=== PATIENT | female | born 1955 | race Two or more races ===

== ENCOUNTER 2022-03-21 09:44 | Inpatient (IN) | payer MEDICARE, MEDICAID ==
[~2022-03-21] VITALS: Ht 167.6 cm; Wt 70.5 kg
[2022-03-21 10:58] LABS: Basophils # (auto) 0.1 10 ^3/uL (0-0.2); Eosinophils # (auto) 0.1 10 ^3/uL (0-0.8); Eosinophils % (auto) 1.6 % (0.0-7.0); Hematocrit 45.4 % (36.0-46.0); Lymphocytes # (auto) 1.6 10 ^3/uL (0.4-5.4); Mean Corpuscular Hgb Conc. 33.1 g/dL (32.0-36.0); Mean Corpuscular Volume 87.7 fL (80.0-100.0); Monocytes # (auto) 0.4 10 ^3/uL (0-1.3); Neutrophils # (auto) 4.2 10 ^3/uL (1.6-8.6); Neutrophils % (auto) 65.4 % (37.0-80.0); Nucleated Red Blood Cells % 0.1 %; Red Blood Cells 5.18 10^6/uL (4.0-5.20); Red Cell Distribution Width 13.5 % (11.8-14.3); White Blood Cell 6.3 10^3/uL (4.4-10.8)
[2022-03-21 11:15] LABS: Albumin 3.5 g/dL (3.4-5.0); Anion Gap 8 (5-15); Blood Urea Nitrogen 24 mg/dL (7-18); Calcium 9.4 mg/dL (8.5-10.1); Carbon Dioxide 25 mmol/L (21-32); Chloride 107 mmol/L (98-107); Glucose 113 mg/dL (74-106); Potassium 3.9 mmol/L (3.5-5.1); Sodium 140 mmol/L (136-145)
[2022-03-21 11:20] LABS: Alanine Aminotransferase 21 U/L (13-56); Alkaline Phosphatase 103 U/L (45-117); Aspartate Aminotransferase 19 U/L (15-37); BUN/Creatinine Ratio 31.2; Bilirubin, Total 0.8 mg/dL (0.2-1.0); Blood Alcohol < 3.0 mg/dL (0-5); GFR African American 96 mL/min; GFR Non-African American 80 mL/min; Total Protein 7.9 g/dL (6.4-8.2)
[2022-03-21 11:21] LABS: Salicylate < 1.7 mg/dL (2.8-20.0)
[2022-03-21 11:22] LABS: Acetaminophen < 2.0 ug/mL (10-30)
[2022-03-21 11:27] LABS: Alcohol, Urine < 3.0 mg/dL (0-10); Amphetamine Screen, Urine NEGATIVE (NEGATIVE); Barbiturate Scree,Urine NEGATIVE (NEGATIVE); Benzodiazephine Screen, Urine NEGATIVE (NEGATIVE); Cannabinoid Screen, Urine NEGATIVE (NEGATIVE); Cocaine Screen, Urine NEGATIVE (NEGATIVE); Opiate Scree,Urine NEGATIVE (NEGATIVE); Phencyclidine Screen, Urine NEGATIVE (NEGATIVE)
[2022-03-21] MEDS ORDERED: DIVA250T4 PO (17:58)
[2022-03-21] MEDS ORDERED: HYDR50TA69 PO (17:58)
[2022-03-22] MEDS: hydrOXYzine 25 MG TAB or CAP PO PRN ×2 (00:28→10:55)
[2022-03-22 22:56] VITALS: BP 101/68
[2022-03-23] MEDS: hydrOXYzine 25 MG TAB or CAP PO PRN (20:53)
[2022-03-23 22:00] VITALS: BP 82/45
[2022-03-23 22:05] VITALS: BP 89/64
[2022-03-24 05:00] VITALS: BP 99/68
[2022-03-24 09:00] VITALS: BP 99/65
[2022-03-24] MEDS ORDERED: SERTRALINE HCL 50 MG TAB PO ONE (11:00)
[2022-03-24] MEDS: ENOXAPARIN SOD 40 MG/0.4 ML SYRINGE SC SCH (12:17)
[2022-03-24 13:00] VITALS: BP 107/61
[2022-03-24 13:06] LABS: Basophils # (auto) 0 10 ^3/uL (0-0.2); Basophils % (auto) 0.9 % (0.0-2.0); Eosinophils # (auto) 0.2 10 ^3/uL (0-0.8); Eosinophils % (auto) 4.2 % (0.0-7.0); Hematocrit 42.5 % (36.0-46.0); Hemoglobin 13.9 g/dL (12.2-16.2); Lymphocytes # (auto) 1.4 10 ^3/uL (0.4-5.4); Lymphocytes % (auto) 30.6 % (10.0-50.0); Mean Corpuscular Hemoglobin 28.8 pg (28.0-32.0); Mean Corpuscular Hgb Conc. 32.7 g/dL (32.0-36.0); Monocytes # (auto) 0.3 10 ^3/uL (0-1.3); Monocytes % (auto) 6.7 % (0.0-12.0); Neutrophils # (auto) 2.6 10 ^3/uL (1.6-8.6); Neutrophils % (auto) 57.6 % (37.0-80.0); Nucleated Red Blood Cells % 0.2 %; Red Blood Cells 4.83 10^6/uL (4.0-5.20); Red Cell Distribution Width 13.6 % (11.8-14.3); White Blood Cell 4.5 10^3/uL (4.4-10.8)
[2022-03-24 13:21] LABS: Potassium 3.9 mmol/L (3.5-5.1)
[2022-03-24 13:32] LABS: Albumin 3.1 g/dL (3.4-5.0); Bilirubin, Total 0.7 mg/dL (0.2-1.0); Magnesium 1.9 mg/dL (1.6-2.6); Total Protein 6.6 g/dL (6.4-8.2)
[2022-03-24] MEDS: hydrOXYzine 25 MG TAB or CAP PO PRN (20:52)
[2022-03-24 21:51] VITALS: BP 102/65
[2022-03-25 04:51] VITALS: BP 95/60
[2022-03-25 08:59] LABS: Hepatitis B Surface Antibody Positive (Negative)
[2022-03-25 09:35] LABS: Hepatitis A Total Antibody Positive (Negative)
[2022-03-25] MEDS: ENOXAPARIN SOD 40 MG/0.4 ML SYRINGE SC SCH (10:00)
[2022-03-25] MEDS: SERTRALINE HCL 50 MG TAB PO SCH (10:00)
[2022-03-25 10:41] LABS: Hepatitis C Antibody Positive (Negative)
[2022-03-25 12:19] VITALS: BP 90/55
[2022-03-25 17:00] VITALS: BP 94/65
[2022-03-25] MEDS: hydrOXYzine 25 MG TAB or CAP PO PRN (21:16)
[2022-03-25 22:00] VITALS: BP 105/70
[2022-03-26 04:43] VITALS: BP 92/61
[2022-03-26] MEDS: SERTRALINE HCL 50 MG TAB PO SCH (10:42)
[2022-03-26] MEDS: hydrOXYzine 25 MG TAB or CAP PO PRN ×2 (10:42→21:00)
[2022-03-26] MEDS: ENOXAPARIN SOD 40 MG/0.4 ML SYRINGE SC SCH (10:43)
[2022-03-26 17:00] VITALS: BP 107/61
[2022-03-27 08:00] VITALS: BP 101/56
[2022-03-27 08:51] VITALS: BP 101/56
[2022-03-27] MEDS: ENOXAPARIN SOD 40 MG/0.4 ML SYRINGE SC SCH ×2 (10:00→10:19)
[2022-03-27] MEDS: SERTRALINE HCL 50 MG TAB PO SCH (10:19)
[2022-03-27 13:00] VITALS: BP 89/56
[2022-03-27 16:35] VITALS: BP 119/65
[2022-03-27] MEDS: hydrOXYzine 25 MG TAB or CAP PO PRN (21:07)
[2022-03-27 21:36] VITALS: BP 109/66
[2022-03-28 05:00] VITALS: BP 91/60
[2022-03-28 08:00] VITALS: BP 98/53
[2022-03-28 08:05] VITALS: BP 98/53
[2022-03-28] MEDS: ENOXAPARIN SOD 40 MG/0.4 ML SYRINGE SC SCH (10:00)
[2022-03-28] MEDS: SERTRALINE HCL 50 MG TAB PO SCH (10:21)
[2022-03-28 12:20] VITALS: BP 103/55
[2022-03-28] MEDS: hydrOXYzine 25 MG TAB or CAP PO PRN (13:00)
[2022-03-28 16:00] VITALS: BP 94/60
[2022-03-28 22:23] VITALS: BP 107/61
[2022-03-29] MEDS: hydrOXYzine 25 MG TAB or CAP PO PRN ×2 (00:04→21:34)
[2022-03-29 05:03] VITALS: BP 114/51
[2022-03-29 08:51] VITALS: BP 100/73
[2022-03-29] MEDS: ENOXAPARIN SOD 40 MG/0.4 ML SYRINGE SC SCH (10:00)
[2022-03-29] MEDS: SERTRALINE HCL 50 MG TAB PO SCH (10:19)
[2022-03-29 13:00] VITALS: BP 119/71
[2022-03-29 16:43] VITALS: BP 99/57
[2022-03-29] MEDS: LOPERAMIDE HCL 2 MG CAP/TAB PO PRN (21:40)
[2022-03-29 22:00] VITALS: BP 96/59
[2022-03-30 05:00] VITALS: BP 98/59
[2022-03-30 08:00] VITALS: BP 114/72
[2022-03-30] MEDS: ENOXAPARIN SOD 40 MG/0.4 ML SYRINGE SC SCH (10:00)
[2022-03-30] MEDS: hydrOXYzine 25 MG TAB or CAP PO PRN ×2 (11:14→23:09)
[2022-03-30] MEDS: SERTRALINE HCL 50 MG TAB PO SCH (11:14)
[2022-03-30] MEDS: LOPERAMIDE HCL 2 MG CAP/TAB PO PRN ×2 (11:14→23:42)
[2022-03-30 12:00] VITALS: BP 93/48
[2022-03-30 16:00] VITALS: BP 88/54
[2022-03-30 22:00] VITALS: BP 95/65
[2022-03-31] MEDS: hydrOXYzine 25 MG TAB or CAP PO PRN ×2 (04:19→17:57)
[2022-03-31 05:00] VITALS: BP 106/66
[2022-03-31 09:00] VITALS: BP 107/70
[2022-03-31] MEDS: ENOXAPARIN SOD 40 MG/0.4 ML SYRINGE SC SCH (10:00)
[2022-03-31] MEDS: SERTRALINE HCL 50 MG TAB PO SCH (10:04)
[2022-03-31] MEDS: LOPERAMIDE HCL 2 MG CAP/TAB PO PRN (10:06)
[2022-03-31 13:00] VITALS: BP 95/68
[2022-03-31] MEDS ORDERED: HYDROCORTISONE ACET 25 MG RECTAL SUPP PR ONE (15:45)
[2022-03-31 17:00] VITALS: BP 107/77
[2022-03-31 22:00] VITALS: BP 96/64
[2022-04-01] MEDS: HYDROCORTISONE ACET 25 MG RECTAL SUPP PR SCH ×3 (00:01→21:08)
[2022-04-01] MEDS: hydrOXYzine 25 MG TAB or CAP PO PRN ×2 (04:10→21:08)
[2022-04-01 05:00] VITALS: BP 97/63
[2022-04-01 08:10] VITALS: BP 117/68
[2022-04-01 09:05] VITALS: BP 117/68
[2022-04-01] MEDS: ENOXAPARIN SOD 40 MG/0.4 ML SYRINGE SC SCH (09:46)
[2022-04-01] MEDS: SERTRALINE HCL 50 MG TAB PO SCH ×2 (09:46→12:05)
[2022-04-01 13:04] LABS: Basophils # (auto) 0 10 ^3/uL (0-0.2); Basophils % (auto) 0.5 % (0.0-2.0); Eosinophils # (auto) 0.3 10 ^3/uL (0-0.8); Eosinophils % (auto) 3.3 % (0.0-7.0); Hemoglobin 13.8 g/dL (12.2-16.2); Lymphocytes # (auto) 1.8 10 ^3/uL (0.4-5.4); Lymphocytes % (auto) 23.5 % (10.0-50.0); Mean Corpuscular Hemoglobin 28.9 pg (28.0-32.0); Mean Corpuscular Hgb Conc. 32.9 g/dL (32.0-36.0); Mean Corpuscular Volume 87.8 fL (80.0-100.0); Monocytes # (auto) 0.6 10 ^3/uL (0-1.3); Monocytes % (auto) 8.4 % (0.0-12.0); Neutrophils % (auto) 64.3 % (37.0-80.0); Red Blood Cells 4.78 10^6/uL (4.0-5.20); Red Cell Distribution Width 13.4 % (11.8-14.3); White Blood Cell 7.8 10^3/uL (4.4-10.8)
[2022-04-01 13:11] LABS: Albumin 3.4 g/dL (3.4-5.0); BUN/Creatinine Ratio 33.3; Calcium 8.6 mg/dL (8.5-10.1); Potassium 4.1 mmol/L (3.5-5.1)
[2022-04-01 13:14] LABS: Bilirubin, Total 0.4 mg/dL (0.2-1.0)
[2022-04-01 14:19] VITALS: BP 93/43
[2022-04-01 16:00] LABS: Urine Bacteria NONE SEEN /hpf (None Seen); Urine Blood 2+ /uL (Negative); Urine Specific Gravity 1.012 (1.001-1.035); Urine WBC 1 /hpf (0 - 5)
[2022-04-01] MEDS: HALOPERIDOL LACTATE 5 MG/ML INJ VIAL IM PRN (16:43)
[2022-04-01 17:09] VITALS: BP 138/75
[2022-04-02 08:05] VITALS: BP 98/65
[2022-04-02 09:00] VITALS: BP 98/65
[2022-04-02] MEDS: ENOXAPARIN SOD 40 MG/0.4 ML SYRINGE SC SCH (10:00)
[2022-04-02] MEDS: SERTRALINE HCL 50 MG TAB PO SCH (10:20)
[2022-04-02] MEDS: HYDROCORTISONE ACET 25 MG RECTAL SUPP PR SCH ×2 (10:20→21:31)
[2022-04-02 13:00] VITALS: BP 98/59
[2022-04-02] MEDS: HALOPERIDOL LACTATE 5 MG/ML INJ VIAL IM PRN (14:31)
[2022-04-03] MEDS: HYDROCORTISONE 2.5% TOPICAL CREAM 30GM TUBE PR PRN ×2 (00:27→22:35)
[2022-04-03] MEDS: HALOPERIDOL LACTATE 5 MG/ML INJ VIAL IM PRN (00:52)
[2022-04-03] MEDS: hydrOXYzine 25 MG TAB or CAP PO PRN ×2 (01:11→14:56)
[2022-04-03] MEDS: LOPERAMIDE HCL 2 MG CAP/TAB PO PRN ×2 (01:11→22:34)
[2022-04-03 07:50] VITALS: BP 107/69
[2022-04-03] MEDS: HYDROCORTISONE ACET 25 MG RECTAL SUPP PR SCH ×2 (09:58→22:00)
[2022-04-03] MEDS: ENOXAPARIN SOD 40 MG/0.4 ML SYRINGE SC SCH (09:58)
[2022-04-03] MEDS ORDERED: clonazePAM 0.5 MG TAB PO ONE ×2 (10:00→22:00)
[2022-04-03 13:00] VITALS: BP 94/65
[2022-04-03 21:43] VITALS: BP 94/53
[2022-04-03] MEDS: OLANZapine 5 MG TAB PO SCH (22:34)
[2022-04-04 04:59] VITALS: BP 105/68
[2022-04-04] MEDS: HYDROCORTISONE ACET 25 MG RECTAL SUPP PR SCH ×3 (10:00→22:28)
[2022-04-04] MEDS: ENOXAPARIN SOD 40 MG/0.4 ML SYRINGE SC SCH (10:00)
[2022-04-04] MEDS: HYDROCORTISONE 2.5% TOPICAL CREAM 30GM TUBE PR PRN (14:41)
[2022-04-04 21:22] VITALS: BP 110/70
[2022-04-04] MEDS: OLANZapine 5 MG TAB PO SCH (22:28)
[2022-04-04] MEDS: LOPERAMIDE HCL 2 MG CAP/TAB PO PRN (22:28)
[2022-04-05] MEDS: hydrOXYzine 25 MG TAB or CAP PO PRN ×2 (02:15→22:43)
[2022-04-05 04:49] VITALS: BP 113/76
[2022-04-05 09:00] VITALS: BP 100/57
[2022-04-05 12:58] VITALS: BP 99/66
[2022-04-05] MEDS ORDERED: HYDROcodone-ACET 5/325MG TAB PO PRN (14:15)
[2022-04-05] MEDS: HYDROcodone-ACET 5/325MG TAB PO PRN (15:09)
[2022-04-05 17:00] VITALS: BP 89/56
[2022-04-05] MEDS ORDERED: WITCH HAZEL-GLYCERIN PAD TOP PRN (17:30)
[2022-04-05 22:00] VITALS: BP 104/66
[2022-04-05] MEDS: HYDROCORTISONE ACET 25 MG RECTAL SUPP PR SCH (22:00)
[2022-04-05] MEDS: OLANZapine 5 MG TAB PO SCH (22:11)
[2022-04-06 05:00] VITALS: BP 87/45
[2022-04-06 09:00] VITALS: BP 117/95
[2022-04-06] MEDS: HYDROcodone-ACET 5/325MG TAB PO PRN ×3 (09:39→22:09)
[2022-04-06] MEDS: HYDROCORTISONE ACET 25 MG RECTAL SUPP PR SCH ×2 (10:00→21:12)
[2022-04-06] MEDS: hydrOXYzine 25 MG TAB or CAP PO PRN ×2 (11:02→21:12)
[2022-04-06 13:12] VITALS: BP 92/61
[2022-04-06 16:54] VITALS: BP 99/53
[2022-04-06] MEDS: OLANZapine 5 MG TAB PO SCH (21:12)
[2022-04-07] MEDS: HYDROcodone-ACET 5/325MG TAB PO PRN (04:15)
[2022-04-07] MEDS: HYDROCORTISONE ACET 25 MG RECTAL SUPP PR SCH ×2 (11:13→21:47)
[2022-04-07 13:19] VITALS: BP 104/65
[2022-04-07] MEDS: hydrOXYzine 25 MG TAB or CAP PO PRN ×2 (15:36→21:47)
[2022-04-07 16:54] VITALS: BP 100/65
[2022-04-07] MEDS: Juven Orange Powder PACKET 27.5gm PO SCH (18:29)
[2022-04-07] MEDS: OLANZapine 5 MG TAB PO SCH (21:47)
[2022-04-07 22:00] VITALS: BP 95/68
[2022-04-08] MEDS: HYDROcodone-ACET 5/325MG TAB PO PRN ×2 (02:52→19:27)
[2022-04-08 04:44] VITALS: BP 97/63
[2022-04-08 06:03] LABS: Albumin 2.8 g/dL (3.4-5.0); Calcium 8.5 mg/dL (8.5-10.1); Potassium 3.9 mmol/L (3.5-5.1)
[2022-04-08 06:08] LABS: BUN/Creatinine Ratio 24.2; Bilirubin, Total 0.6 mg/dL (0.2-1.0); Total Protein 6.5 g/dL (6.4-8.2)
[2022-04-08] MEDS: Juven Orange Powder PACKET 27.5gm PO SCH ×2 (08:00→18:01)
[2022-04-08 09:00] VITALS: BP 99/62
[2022-04-08] MEDS: HYDROCORTISONE ACET 25 MG RECTAL SUPP PR SCH ×2 (09:41→21:32)
[2022-04-08] MEDS: LOPERAMIDE HCL 2 MG CAP/TAB PO PRN (09:45)
[2022-04-08] MEDS: ENOXAPARIN SOD 40 MG/0.4 ML SYRINGE SC SCH (09:46)
[2022-04-08 13:00] VITALS: BP 94/62
[2022-04-08 17:00] VITALS: BP 94/55
[2022-04-08 21:02] VITALS: BP 96/69
[2022-04-08] MEDS: hydrOXYzine 25 MG TAB or CAP PO PRN (21:32)
[2022-04-08] MEDS: OLANZapine 5 MG TAB PO SCH (21:32)
[2022-04-09 05:05] VITALS: BP 100/60
[2022-04-09] MEDS: HYDROCORTISONE ACET 25 MG RECTAL SUPP PR SCH ×2 (09:56→21:42)
[2022-04-09] MEDS: ENOXAPARIN SOD 40 MG/0.4 ML SYRINGE SC SCH (09:57)
[2022-04-09] MEDS: Juven Orange Powder PACKET 27.5gm PO SCH ×2 (13:20→18:29)
[2022-04-09] MEDS: HYDROcodone-ACET 5/325MG TAB PO PRN (15:48)
[2022-04-09 17:00] VITALS: BP 79/50
[2022-04-09] MEDS: OLANZapine 5 MG TAB PO SCH (21:42)
[2022-04-09] MEDS: hydrOXYzine 25 MG TAB or CAP PO PRN (21:42)
[2022-04-09 22:55] VITALS: BP 93/57
[2022-04-10 04:51] VITALS: BP 98/62
[2022-04-10] MEDS: HYDROcodone-ACET 5/325MG TAB PO PRN ×2 (06:47→13:39)
[2022-04-10 08:55] VITALS: BP 93/54
[2022-04-10] MEDS: Juven Orange Powder PACKET 27.5gm PO SCH ×2 (10:05→18:54)
[2022-04-10] MEDS: HYDROCORTISONE ACET 25 MG RECTAL SUPP PR SCH ×2 (10:05→21:19)
[2022-04-10] MEDS: ENOXAPARIN SOD 40 MG/0.4 ML SYRINGE SC SCH (10:05)
[2022-04-10 12:23] VITALS: BP 85/51
[2022-04-10 16:53] VITALS: BP 90/53
[2022-04-10] MEDS: OLANZapine 5 MG TAB PO SCH (21:18)
[2022-04-10] MEDS: hydrOXYzine 25 MG TAB or CAP PO PRN (21:20)
[2022-04-10 22:00] VITALS: BP 95/55
[2022-04-11] MEDS: Juven Orange Powder PACKET 27.5gm PO SCH ×2 (08:00→18:06)
[2022-04-11 09:00] VITALS: BP 97/66
[2022-04-11] MEDS: HYDROCORTISONE ACET 25 MG RECTAL SUPP PR SCH ×2 (09:56→21:57)
[2022-04-11] MEDS: ENOXAPARIN SOD 40 MG/0.4 ML SYRINGE SC SCH (09:58)
[2022-04-11] MEDS: HYDROcodone-ACET 5/325MG TAB PO PRN (10:01)
[2022-04-11 12:51] VITALS: BP 89/52
[2022-04-11 15:44] LABS: Basophils # (auto) 0.1 10 ^3/uL (0-0.2); Basophils % (auto) 0.9 % (0.0-2.0); Eosinophils # (auto) 0.2 10 ^3/uL (0-0.8); Eosinophils % (auto) 3.9 % (0.0-7.0); Hematocrit 39.4 % (36.0-46.0); Hemoglobin 12.7 g/dL (12.2-16.2); Lymphocytes # (auto) 1.7 10 ^3/uL (0.4-5.4); Lymphocytes % (auto) 27.4 % (10.0-50.0); Mean Corpuscular Hemoglobin 28.8 pg (28.0-32.0); Mean Corpuscular Hgb Conc. 32.2 g/dL (32.0-36.0); Mean Corpuscular Volume 89.5 fL (80.0-100.0); Monocytes # (auto) 0.4 10 ^3/uL (0-1.3); Monocytes % (auto) 7.1 % (0.0-12.0); Neutrophils # (auto) 3.8 10 ^3/uL (1.6-8.6); Neutrophils % (auto) 60.7 % (37.0-80.0); Nucleated Red Blood Cells % 0.1 %; Red Cell Distribution Width 13.4 % (11.8-14.3); White Blood Cell 6.3 10^3/uL (4.4-10.8)
[2022-04-11 16:41] LABS: BUN/Creatinine Ratio 55.4; Calcium 8.5 mg/dL (8.5-10.1); Potassium 4.1 mmol/L (3.5-5.1)
[2022-04-11 17:00] VITALS: BP 99/65
[2022-04-11] MEDS: hydrOXYzine 25 MG TAB or CAP PO PRN (21:57)
[2022-04-11] MEDS: OLANZapine 5 MG TAB PO SCH (21:58)
[2022-04-11 22:01] VITALS: BP 102/60
[2022-04-12 05:16] VITALS: BP 101/58
[2022-04-12] MEDS: Juven Orange Powder PACKET 27.5gm PO SCH ×2 (08:00→17:36)
[2022-04-12 09:00] VITALS: BP 94/59
[2022-04-12] MEDS: ENOXAPARIN SOD 40 MG/0.4 ML SYRINGE SC SCH ×2 (10:00→11:24)
[2022-04-12] MEDS: HYDROCORTISONE ACET 25 MG RECTAL SUPP PR SCH ×2 (11:24→21:40)
[2022-04-12 13:00] VITALS: BP 99/69
[2022-04-12] MEDS: hydrOXYzine 25 MG TAB or CAP PO PRN ×3 (13:26→22:42)
[2022-04-12 17:00] VITALS: BP 100/64
[2022-04-12] MEDS: OLANZapine 5 MG TAB PO SCH (21:40)
[2022-04-12 22:00] VITALS: BP 91/70
[2022-04-13] MEDS: Juven Orange Powder PACKET 27.5gm PO SCH ×2 (08:00→18:00)
[2022-04-13 09:00] VITALS: BP 96/67
[2022-04-13] MEDS: ENOXAPARIN SOD 40 MG/0.4 ML SYRINGE SC SCH (09:24)
[2022-04-13] MEDS: HYDROCORTISONE ACET 25 MG RECTAL SUPP PR SCH ×2 (09:24→22:22)
[2022-04-13] MEDS: HYDROcodone-ACET 5/325MG TAB PO PRN (09:27)
[2022-04-13 12:36] VITALS: BP 88/58
[2022-04-13 13:00] VITALS: BP 99/70
[2022-04-13] MEDS: hydrOXYzine 25 MG TAB or CAP PO PRN (13:48)
[2022-04-13 16:56] VITALS: BP 93/70
[2022-04-13 22:00] VITALS: BP 96/68
[2022-04-13] MEDS: OLANZapine 5 MG TAB PO SCH (22:22)
[2022-04-14 05:00] VITALS: BP 87/57
[2022-04-14] MEDS: Juven Orange Powder PACKET 27.5gm PO SCH ×2 (08:00→18:40)
[2022-04-14 09:00] VITALS: BP 90/56
[2022-04-14] MEDS: ENOXAPARIN SOD 40 MG/0.4 ML SYRINGE SC SCH (09:17)
[2022-04-14] MEDS: HYDROCORTISONE ACET 25 MG RECTAL SUPP PR SCH ×2 (09:17→22:31)
[2022-04-14 13:00] VITALS: BP 102/57
[2022-04-14] MEDS: hydrOXYzine 25 MG TAB or CAP PO PRN (13:04)
[2022-04-14 17:00] VITALS: BP 96/62
[2022-04-14 22:00] VITALS: BP 96/68
[2022-04-14] MEDS: OLANZapine 5 MG TAB PO SCH (22:31)
[2022-04-15 05:00] VITALS: BP 94/61
[2022-04-15] MEDS: Juven Orange Powder PACKET 27.5gm PO SCH ×2 (08:00→18:00)
[2022-04-15 08:30] VITALS: BP 94/68
[2022-04-15] MEDS: HYDROCORTISONE ACET 25 MG RECTAL SUPP PR SCH ×2 (09:49→21:51)
[2022-04-15] MEDS: ENOXAPARIN SOD 40 MG/0.4 ML SYRINGE SC SCH (09:49)
[2022-04-15] MEDS: HYDROcodone-ACET 5/325MG TAB PO PRN (09:50)
[2022-04-15 12:30] VITALS: BP 103/71
[2022-04-15 17:00] VITALS: BP 95/68
[2022-04-15] MEDS: OLANZapine 5 MG TAB PO SCH (21:51)
[2022-04-15 22:02] VITALS: BP 127/77
[2022-04-16 04:30] VITALS: BP 95/53
[2022-04-16] MEDS: Juven Orange Powder PACKET 27.5gm PO SCH ×2 (08:00→18:04)
[2022-04-16 09:02] VITALS: BP 113/73
[2022-04-16] MEDS: hydrOXYzine 25 MG TAB or CAP PO PRN (09:38)
[2022-04-16] MEDS: ENOXAPARIN SOD 40 MG/0.4 ML SYRINGE SC SCH (09:44)
[2022-04-16] MEDS: HYDROCORTISONE ACET 25 MG RECTAL SUPP PR SCH ×2 (09:44→22:00)
[2022-04-16 09:52] LABS: Basophils # (auto) 0.1 10 ^3/uL (0-0.2); Basophils % (auto) 0.8 % (0.0-2.0); Eosinophils # (auto) 0.3 10 ^3/uL (0-0.8); Eosinophils % (auto) 3.6 % (0.0-7.0); Hematocrit 42.2 % (36.0-46.0); Hemoglobin 13.7 g/dL (12.2-16.2); Lymphocytes # (auto) 2.2 10 ^3/uL (0.4-5.4); Mean Corpuscular Hemoglobin 29.1 pg (28.0-32.0); Mean Corpuscular Hgb Conc. 32.5 g/dL (32.0-36.0); Mean Corpuscular Volume 89.7 fL (80.0-100.0); Monocytes # (auto) 0.6 10 ^3/uL (0-1.3); Neutrophils # (auto) 4.4 10 ^3/uL (1.6-8.6); Neutrophils % (auto) 58.6 % (37.0-80.0); Nucleated Red Blood Cells % 0.1 %; Red Blood Cells 4.71 10^6/uL (4.0-5.20); Red Cell Distribution Width 14.1 % (11.8-14.3); White Blood Cell 7.4 10^3/uL (4.4-10.8)
[2022-04-16 10:13] LABS: Calcium 8.7 mg/dL (8.5-10.1)
[2022-04-16 10:19] LABS: BUN/Creatinine Ratio 38.9; Bilirubin, Total 0.5 mg/dL (0.2-1.0); Total Protein 6.9 g/dL (6.4-8.2)
[2022-04-16 12:51] VITALS: BP 125/73
[2022-04-16] MEDS: CLINDAMYCIN HCL 150 MG CAP PO SCH ×2 (14:23→22:01)
[2022-04-16 22:00] VITALS: BP 126/80
[2022-04-16] MEDS: OLANZapine 5 MG TAB PO SCH (22:01)
[2022-04-17 05:00] VITALS: BP 107/60
[2022-04-17] MEDS: CLINDAMYCIN HCL 150 MG CAP PO SCH ×3 (05:49→21:58)
[2022-04-17] MEDS: Juven Orange Powder PACKET 27.5gm PO SCH ×2 (08:00→18:42)
[2022-04-17 09:00] VITALS: BP 108/58
[2022-04-17] MEDS: HYDROCORTISONE ACET 25 MG RECTAL SUPP PR SCH ×2 (10:00→22:00)
[2022-04-17] MEDS: ENOXAPARIN SOD 40 MG/0.4 ML SYRINGE SC SCH (10:00)
[2022-04-17 13:00] VITALS: BP 110/69
[2022-04-17 17:00] VITALS: BP 120/93
[2022-04-17] MEDS: OLANZapine 5 MG TAB PO SCH (21:58)
[2022-04-17 22:00] VITALS: BP 108/88
[2022-04-17] MEDS: hydrOXYzine 25 MG TAB or CAP PO PRN (22:02)
[2022-04-18 05:58] VITALS: BP 113/76
[2022-04-18] MEDS: CLINDAMYCIN HCL 150 MG CAP PO SCH (06:24)
[2022-04-18 08:20] VITALS: BP 90/53
[2022-04-18] MEDS: HYDROCORTISONE ACET 25 MG RECTAL SUPP PR SCH (08:21)
[2022-04-18] MEDS: Juven Orange Powder PACKET 27.5gm PO SCH (08:21)
[2022-04-18] MEDS: ENOXAPARIN SOD 40 MG/0.4 ML SYRINGE SC SCH (09:55)
[2022-04-18 11:31] VITALS: BP 122/82
== END 2022-04-18 13:15 | disposition home or self-care (01) | DRG 383 ==
LOC: ER 09:55 → OVERFLOW 03-22 11:26 → EAST 03-22 23:37 → WEST WING 04-05 10:42
PROVIDERS: ADMIT Registered Nurse; ATTEND Internal Medicine
DX: L02.31 Cutaneous abscess of buttock (principal); R45.851 Suicidal ideations; K74.60 Unspecified cirrhosis of liver; R62.7 Adult failure to thrive; F31.9 Bipolar disorder, unspecified; F20.9 Schizophrenia, unspecified; F41.9 Anxiety disorder, unspecified; J44.9 Chronic obstructive pulmonary disease, unspecified; B19.20 Unspecified viral hepatitis C without hepatic coma; K64.9 Unspecified hemorrhoids; Z20.822 Contact with and (suspected) exposure to COVID-19; I10 Essential (primary) hypertension; Z68.23 Body mass index [BMI] 23.0-23.9, adult; Z59.7 Insufficient social insurance and welfare support; Z59.00 Homelessness unspecified
CPT/HCPCS: 36415; 71045; 80048; 80053; 80061; 80164; 80307; 80320; 80329; 81001; 82306; 82565; 82607; 82962; 83036; 83735; 84443; 85025; 86703; 86704; 86706; 86708; 86803; 87045; 87081; 87340; 87427; 87493; 97163; G0378

== ENCOUNTER 2022-11-10 12:20 | Inpatient (IN) | payer MEDICARE, MEDICAID ==
[~2022-11-10] VITALS: Ht 167.6 cm; Wt 81.0 kg
[~2022-11-10 12:20] MED LIST: DIVA250T4 PO; HYDR50TA69 PO
[2022-11-10] MEDS ORDERED: LACTATED RINGER'S 1,000 ML IV ONE (13:00)
[2022-11-10] MEDS ORDERED: MAALOX PLUS or MAALOX 30 ML PO ONE (13:00)
[2022-11-10] MEDS ORDERED: ONDANSETRON HCL 4 MG/2 ML VIAL IV ONE (13:00)
[2022-11-10] MEDS ORDERED: LIDOCAINE VISCOUS 2% 15ML UD PO ONE (13:00)
[2022-11-10] MEDS ORDERED: FAMOTIDINE (10MG/ML) 2ML VL IV ONE (13:00)
[2022-11-10 13:59] LABS: Basophils # (auto) 0.1 10 ^3/uL (0-0.2); Basophils % (auto) 0.8 % (0.0-2.0); Eosinophils # (auto) 0.2 10 ^3/uL (0-0.8); Eosinophils % (auto) 2.1 % (0.0-7.0); Hematocrit 42.9 % (36.0-46.0); Hemoglobin 14.7 g/dL (12.2-16.2); Lymphocytes # (auto) 2.6 10 ^3/uL (0.4-5.4); Lymphocytes % (auto) 30.9 % (10.0-50.0); Mean Corpuscular Hemoglobin 30.8 pg (28.0-32.0); Mean Corpuscular Hgb Conc. 34.3 g/dL (32.0-36.0); Mean Corpuscular Volume 89.9 fL (80.0-100.0); Monocytes # (auto) 0.7 10 ^3/uL (0-1.3); Monocytes % (auto) 7.9 % (0.0-12.0); Neutrophils # (auto) 4.8 10 ^3/uL (1.6-8.6); Neutrophils % (auto) 58.3 % (37.0-80.0); Nucleated Red Blood Cells % 0.2 %; Red Blood Cells 4.76 10^6/uL (4.0-5.20); Red Cell Distribution Width 13.5 % (11.8-14.3); White Blood Cell 8.3 10^3/uL (4.4-10.8)
[2022-11-10 14:03] LABS: Urine Bacteria NONE SEEN /hpf (None Seen); Urine Blood Negative /uL (Negative); Urine Mucus FEW (None Seen); Urine WBC 23 /hpf (0 - 5)
[2022-11-10 14:12] LABS: Albumin 3.6 g/dL (3.4-5.0); BUN/Creatinine Ratio 28.1; Calcium 9.7 mg/dL (8.5-10.1); Potassium 4.2 mmol/L (3.5-5.1)
[2022-11-10 14:15] LABS: Bilirubin, Total 0.7 mg/dL (0.2-1.0); Total Protein 7.7 g/dL (6.4-8.2)
[2022-11-10] MEDS ORDERED: cefTRIAXone 1GM/50ML D5W 50 ML IV ONE (17:45)
[2022-11-10] MEDS ORDERED: PANTOPRAZOLE 40 MG/10 ML VIAL INJ IV ONE (18:30)
[2022-11-10 18:32] LABS: INR 1.05 (0.9-1.15); Partial Thromboplastin Time 28.8 sec (24.6-33.4)
[2022-11-10] MEDS ORDERED: IOHEXOL 300 MG/ML 100ML BOTTLE IJ ONE (18:48)
[2022-11-10] MEDS: SODIUM CHLORIDE 0.9% 1,000 ML IV SCH (18:49)
[2022-11-11 07:28] LABS: Basophils # (auto) 0.1 10 ^3/uL (0-0.2); Basophils % (auto) 0.9 % (0.0-2.0); Eosinophils # (auto) 0.3 10 ^3/uL (0-0.8); Eosinophils % (auto) 3.9 % (0.0-7.0); Hematocrit 37.7 % (36.0-46.0); Hemoglobin 12.8 g/dL (12.2-16.2); Lymphocytes # (auto) 2.6 10 ^3/uL (0.4-5.4); Lymphocytes % (auto) 39.3 % (10.0-50.0); Mean Corpuscular Hemoglobin 30.8 pg (28.0-32.0); Mean Corpuscular Hgb Conc. 33.9 g/dL (32.0-36.0); Mean Corpuscular Volume 90.8 fL (80.0-100.0); Monocytes # (auto) 0.5 10 ^3/uL (0-1.3); Monocytes % (auto) 7.5 % (0.0-12.0); Neutrophils # (auto) 3.2 10 ^3/uL (1.6-8.6); Neutrophils % (auto) 48.4 % (37.0-80.0); Red Blood Cells 4.15 10^6/uL (4.0-5.20); Red Cell Distribution Width 13.3 % (11.8-14.3); White Blood Cell 6.5 10^3/uL (4.4-10.8)
[2022-11-11 07:47] LABS: Albumin 2.9 g/dL (3.4-5.0); BUN/Creatinine Ratio 30.5; Calcium 8.6 mg/dL (8.5-10.1); Potassium 4.1 mmol/L (3.5-5.1)
[2022-11-11 07:49] LABS: Bilirubin, Total 0.7 mg/dL (0.2-1.0); Total Protein 6.3 g/dL (6.4-8.2)
[2022-11-11] MEDS: SODIUM CHLORIDE 0.9% 1,000 ML IV SCH ×2 (07:59→21:54)
[2022-11-11] MEDS: cefTRIAXone 1GM/50ML D5W 50 ML IV SCH (09:06)
[2022-11-11] MEDS: PANTOPRAZOLE 40 MG/10 ML VIAL INJ IV SCH (09:53)
[2022-11-11] MEDS: metroNIDAZOLE 500MG/100ML 100 ML IV SCH ×2 (13:46→21:55)
[2022-11-11 21:45] VITALS: BP 108/74
[2022-11-11] MEDS ORDERED: OLAN1TAB7 PO (22:06)
[2022-11-11] MEDS ORDERED: CLON0.1T PO (22:06)
[2022-11-11] MEDS ORDERED: DIVA250T12 PO (22:06)
[2022-11-11] MEDS ORDERED: OXYB5TAB61 PO (22:06)
[2022-11-11] MEDS ORDERED: HYDR1CAP27 PO (22:06)
[2022-11-11] MEDS ORDERED: ARIP10TA29 PO (22:06)
[2022-11-11] MEDS ORDERED: ZOLP5TAB5 PO (22:06)
[2022-11-12] VITALS (7 sets, daily range): BP systolic 100–126; BP diastolic 57–67
[2022-11-12] MEDS: metroNIDAZOLE 500MG/100ML 100 ML IV SCH ×3 (06:02→21:33)
[2022-11-12 06:37] LABS: BUN/Creatinine Ratio 24.1; Calcium 8.9 mg/dL (8.5-10.1)
[2022-11-12 08:18] LABS: Basophils # (auto) 0 10 ^3/uL (0-0.2); Basophils % (auto) 0.7 % (0.0-2.0); Eosinophils # (auto) 0.2 10 ^3/uL (0-0.8); Eosinophils % (auto) 3.9 % (0.0-7.0); Hemoglobin 12.9 g/dL (12.2-16.2); Lymphocytes # (auto) 1.8 10 ^3/uL (0.4-5.4); Lymphocytes % (auto) 33.4 % (10.0-50.0); Mean Corpuscular Hemoglobin 30.9 pg (28.0-32.0); Mean Corpuscular Volume 90.8 fL (80.0-100.0); Monocytes # (auto) 0.4 10 ^3/uL (0-1.3); Monocytes % (auto) 7.1 % (0.0-12.0); Neutrophils % (auto) 54.9 % (37.0-80.0); Nucleated Red Blood Cells % 0.3 %; Red Blood Cells 4.19 10^6/uL (4.0-5.20); Red Cell Distribution Width 13.3 % (11.8-14.3); White Blood Cell 5.5 10^3/uL (4.4-10.8)
[2022-11-12] MEDS: SODIUM CHLORIDE 0.9% 1,000 ML IV SCH ×2 (10:30→18:07)
[2022-11-12] MEDS: cefTRIAXone 1GM/50ML D5W 50 ML IV SCH (10:42)
[2022-11-12] MEDS: PANTOPRAZOLE 40 MG/10 ML VIAL INJ IV SCH (10:42)
[2022-11-12] MEDS: OXYBUTYNIN CHL 5 MG TAB PO SCH (10:42)
[2022-11-12] MEDS: OLANZapine 5 MG TAB PO SCH (10:43)
[2022-11-12] MEDS: ACETAMINOPHEN 325 MG TAB PO PRN ×2 (10:43→21:52)
[2022-11-12] MEDS: ZOLPIDEM TARTRATE 5 MG TAB PO PRN (21:52)
[2022-11-13] VITALS (7 sets, daily range): BP systolic 100–111; BP diastolic 48–61
[2022-11-13] MEDS: metroNIDAZOLE 500MG/100ML 100 ML IV SCH (06:00)
[2022-11-13] MEDS ORDERED: LOPERAMIDE HCL 2 MG CAP/TAB PO PRN (09:15)
[2022-11-13] MEDS ORDERED: LOPERAMIDE HCL 2 MG CAP/TAB PO ONE (09:15)
[2022-11-13] MEDS: OLANZapine 5 MG TAB PO SCH (09:57)
[2022-11-13] MEDS: NITROFURANTOIN 100 mg CAP PO SCH ×2 (09:57→21:46)
[2022-11-13] MEDS: OXYBUTYNIN CHL 5 MG TAB PO SCH (09:57)
[2022-11-13] MEDS: SODIUM CHLORIDE 0.9% 1,000 ML IV SCH (13:10)
[2022-11-13] MEDS: ARTIFICIAL TEARS 15ml EACHEYE PRN (21:46)
[2022-11-13] MEDS: ZOLPIDEM TARTRATE 5 MG TAB PO PRN (21:46)
[2022-11-14] VITALS (7 sets, daily range): BP systolic 101–122; BP diastolic 64–79
[2022-11-14] MEDS: SODIUM CHLORIDE 0.9% 1,000 ML IV SCH (02:57)
[2022-11-14] MEDS: SUCRALFATE 1 GM/10 ML ORAL SUSP PO SCH ×2 (06:42→17:20)
[2022-11-14] MEDS: OLANZapine 5 MG TAB PO SCH (10:23)
[2022-11-14] MEDS: OXYBUTYNIN CHL 5 MG TAB PO SCH (10:24)
[2022-11-14] MEDS: PANTOPRAZOLE 40 MG TAB PO SCH (10:24)
[2022-11-14] MEDS: NITROFURANTOIN 100 mg CAP PO SCH ×2 (10:24→22:09)
[2022-11-14] MEDS: ACETAMINOPHEN 325 MG TAB PO PRN (10:29)
[2022-11-14] MEDS: ZOLPIDEM TARTRATE 5 MG TAB PO PRN (22:09)
[2022-11-14] MEDS: ARTIFICIAL TEARS 15ml EACHEYE PRN (22:09)
[2022-11-15 05:00] VITALS: BP 96/57
[2022-11-15] MEDS: SUCRALFATE 1 GM/10 ML ORAL SUSP PO SCH (06:14)
[2022-11-15 09:00] VITALS: BP 103/62
[2022-11-15] MEDS: OXYBUTYNIN CHL 5 MG TAB PO SCH (09:53)
[2022-11-15] MEDS: NITROFURANTOIN 100 mg CAP PO SCH (09:54)
[2022-11-15] MEDS: PANTOPRAZOLE 40 MG TAB PO SCH (09:54)
[2022-11-15] MEDS: OLANZapine 5 MG TAB PO SCH (09:55)
== END 2022-11-15 11:57 | disposition home or self-care (01) | DRG 249 ==
LOC: ER 12:20 → OVERFLOW 18:22 → WEST WING 11-11 21:26
PROVIDERS: ADMIT Nurse Practitioner Family; ATTEND Internal Medicine Geriatric Medicine
DX: R19.7 Diarrhea, unspecified (principal); K74.60 Unspecified cirrhosis of liver; F20.9 Schizophrenia, unspecified; N39.0 Urinary tract infection, site not specified; K92.1 Melena; F32.A Depression, unspecified; J44.9 Chronic obstructive pulmonary disease, unspecified; Z20.822 Contact with and (suspected) exposure to COVID-19; K64.9 Unspecified hemorrhoids; R11.2 Nausea with vomiting, unspecified
CPT/HCPCS: 36415; 74177; 80048; 80053; 81001; 82270; 83605; 84484; 85025; 85610; 85730; 86850; 86870; 86880; 86900; 86901; 86906; 87045; 87081; 87426; 87427; 87493; 96361; 96365; 96375; 97110; 97116; 97163; 97530; C9113; G0378; J0696; J2405; J3490